=== PATIENT | female | born 1970 ===

== ENCOUNTER 2018-01-16 09:49 | Emergency (ER) | payer BC ==
[2018-01-16 09:59] VITALS: TEMP 97.4; O2SAT 99
[2018-01-16 10:00] VITALS: BMI 31.4
--- NOTE | 2018-01-16 10:47 | ED PDOC ---
Syncope/Near Syncope/Dizziness Time Seen by Provider: 01/16/18 10:10 Chief Complaint (Nursing): Dizziness/Lightheaded Chief Complaint (Provider): near syncope History Per: Patient, Carpet Installation Specialist History/Exam Limitations: language barrier Onset/Duration Of Symptoms: Hrs (one) Current Symptoms Are (Timing): Better Number Of Syncopal Episodes: 1 Activity At Onset Of Symptoms: Standing, Had Just Stood up, Exertional Activity Associated Symptoms Preceding Syncopal Episode: No Predromal Symptoms (Sudden Onset), Lightheadedness, Worse With Standing (Pt indicates that she stood to get ready to go to work and felt very dizzy and lightheaded). denies: Vertigo Possible Causative Factor(s): Lightheaded W/Standing, Lightheaded W/Exertion, Decreased PO Intake (Pt indicates that she stood to get ready for work and immediately felt dizzy and lightheaded; she indicates that this was the first occurrence and that she did not lose consciouslness, nor did she fall or have other injury; Pt does indicate that her fluid intake has been low recently). denies: Diurectics, New Medications, Recent Alcohol Past Medical History Reviewed: Historical Data, Nursing Documentation, Vital Signs Vital Signs: Last Vital Signs Temp 97.4 F L 01/16/18 09:59 Pulse 68 01/16/18 09:59 Resp BP 128/74 01/16/18 09:59 Pulse Ox 99 01/16/18 09:59 - Medical History PMH: Asthma, Diabetes, Hypercholesterolemia - Family History Family History: States: Unknown Family Hx - Allergies Allergies/Adverse Reactions: Allergies Allergy/AdvReac Type Severity Reaction Status Date / Time No Known Allergies Allergy Verified 01/16/18 10:15 Review of Systems ROS Statement: Except As Marked, All Systems Reviewed And Found Negative Constitutional: Negative for: Fever, Chills, Sweats, Weakness, Malaise Eyes: Negative for: Pain Cardiovascular: Positive for: Light Headedness. Negative for: Chest Pain, Palpitations, Orthopnea, Edema Respiratory: Negative for: Cough, Shortness of Breath, Pleuritic Pain, Wheezing Gastrointestinal: Negative for: Nausea Physical Exam - Reviewed Nursing Documentation Reviewed: Yes Vital Signs Reviewed: Yes - Physical Exam Appears: Positive for: Well, No Acute Distress. Negative for: Uncomfortable Head Exam: Positive for: ATRAUMATIC, NORMAL INSPECTION, NORMOCEPHALIC Skin: Positive for: Normal Color Eye Exam: Positive for: Normal appearance, EOMI, PERRL. Negative for: Nystagmu s, Periorbital swelling, Periorbital tenderness Neck: Positive for: Normal, Painless ROM, Supple. Negative for: Decreased ROM Cardiovascular/Chest: Positive for: Regular Rate, Rhythm, Chest Non Tender. Negative for: Edema, Gallop, Murmur, Bradycardia, Tachycardia Respiratory: Positive for: Normal Breath Sounds. Negative for: Decreased Breath Sounds, Accessory Muscle Use, Crackles, Rales, Rhonchi, Stridor, Wheezing, Res piratory Distress Pulses-Carotid (L): 2+ Pulses-Carotid (R): 2+ Pulses-Dorsalis Pedis (L): 2+ Pulses-Dorsalis Pedis (R): 2+ Pulses-Post. Tibialis (L): 2+ Pulses-Post. Tibialis (R): 2+ Gastrointestinal/Abdominal: Positive for: Normal Exam - Laboratory Results Result Diagrams: 01/16/18 10:45 01/16/18 10:45 Urine POC: Negative Urine dip results: Positive for: Ketones (trace) - ECG ECG: Positive for: Interpreted By Me ECG Rhythm: Positive for: Normal QRS, Normal ST Segment, Sinus Rhythm O2 Sat by Pulse Oximetry: 99 Medical Decision Making Medical Decision Making: Will evaluate for Cardiac issues; most probable is blood sugar as pt is D2M Blood Glucose EKG CBC CMP Troponin All results presented are without clinical significance; pt reports that she is no longer symptomatic; advised concerning high lymphocyte level and possiblity of viral infection; increase fluides and rest;; work note provided for additional rest Disposition - Clinical Impression Clinical Impression: Dizziness of unknown cause - Patient ED Disposition Is Patient to be Admitted: No Doctor Will See Patient In The: Office Counseled Patient/Family Regarding: Studies Performed, Diagnosis, Need For Followup - Disposition Disposition: Routine/Home Disposition Time: 12:55 Condition: STABLE Instructions: Dizziness, Nonvertigo, (DC) Forms: [facility] (Sinhala), [facility] (Romansh) Print Language: ARABIC
[2018-01-16 10:55] LABS: BASO # 0.1 K/uL (0.0-0.2); BASO % 1.2 % (0.0-2.0); EOS % 0.5 % (0.0-4.0); HEMOGLOBIN 12.4 g/dL (12.0-16.0); LYMPH # 1.4 K/uL (1.0-4.3); LYMPH % 26.3 % (20.0-40.0); MEAN CELL VOLUME 88.6 fl (81.0-99.0); MEAN CORPUSCULAR HEMOGLOBIN 29.2 pg (27.0-31.0); MEAN PLATELET VOLUME 7.7 fl (7.2-11.7); MONO # 0.7 K/uL (0.0-0.8); MONO % 13.2 % (0.0-10.0); NEUT # 3.1 K/uL (1.8-7.0); NEUT % 58.8 % (50.0-75.0); NRBC % 0.1 % (0.0-0.0); RBC 4.23 Mil/uL (3.80-5.20); WHITE BLOOD COUNT 5.2 K/uL (4.8-10.8)
[2018-01-16 11:04] LABS: ALBUMIN 4.1 g/dL (3.5-5.0); ALT/SGPT 51 U/L (9-52); AST/SGOT 38 U/L (14-36); BLOOD UREA NITROGEN 13 mg/dl (7-17); CALCIUM 9.3 mg/dL (8.4-10.2); GFR NON-AFRICAN AMERICAN > 60
[2018-01-16 11:09] LABS: SQUAMOUS EPITHIAL 8 /hpf (0-5); URINE BILIRUBIN NEGATIVE (NEGATIVE); URINE BLOOD NEGATIVE (NEGATIVE); URINE CLARITY CLOUDY (Clear); URINE COLOR YELLOW (YELLOW); URINE GLUCOSE (UA) 150 mg/dL (Normal); URINE LEUKOCYTE ESTERASE NEG Leu/uL (Negative); URINE PROTEIN NEGATIVE (NEGATIVE); URINE UROBILINOGEN 0.2-1.0 mg/dL (0.2-1.0)
[2018-01-16 11:17] LABS: BARBITURATES, UR NEGATIVE (NEGATIVE); BENZODIAZEPINES, UR NEGATIVE (NEGATIVE); OPIATES, UR NEGATIVE (NEGATIVE); PHENCYCLIDINE, UR NEGATIVE (NEGATIVE)
[2018-01-16 13:03] VITALS: BP 118/68; PULSE 80; RESP 20
--- NOTE | 2018-01-16 18:26 | CARD ---
APPROVED REPORT Date of service: 01/16/2018 EKG Measurement Heart [id number] <Conclusion> Normal sinus rhythm Normal ECG
== END 2018-01-16 13:07 | disposition home or self-care (01) ==
LOC: H.ER 09:49
DX: R42 Dizziness and giddiness (principal); E11.9 Type 2 diabetes mellitus without complications; J45.909 Unspecified asthma, uncomplicated
CPT/HCPCS: 80053; 81003; 81025; 82948; 83735; 84100; 84484; 85025; 93005; 99285; G0480